=== PATIENT | female | born 1945 | race Caucasian/White ===

== ENCOUNTER → 2020-04-27 | Outpatient (CLI) | payer BC, MEDICARE ==
[~2020-04-27] MED LIST: ASPI-587 PO; ATOR20TA66 PO; CETI10CA PO; CRAN500T PO; DIPH50CA33 PO; ENAL20TA PO; EPIN5DRO3 OP; ESTR0.62 GT; FLAX100031 PO; MECL-124 PO; ONDA-42 SL; OXYC-475 PO; SALM1CAP4 PO; SCOP1PAT TD; ST.1POWD PO; TERB25PO PO; VIT1TABL58 PO; VITA-198 PO; [UNRECOGNIZED DRUG - CODE] PO
--- NOTE | 2020-04-27 11:56 | Diagnostic Imaging Report ---
INDICATION: Trauma. COMPARISON: None. FINDINGS: 3 views of the facial bones demonstrate a midline nasal septum. The orbits are symmetric. Paranasal sinuses are clear. No obvious facial fracture is identified. IMPRESSION: No facial fracture. Dictated by: Dictated on workstation # [id number]
== END ==
LOC: RAD 11:25
PROVIDERS: ATTEND Nurse Practitioner Family
DX: S01.511A Laceration without foreign body of lip, initial encounter (principal); S06.339A Contusion and laceration of cerebrum, unspecified, with loss of consciousness of unspecified duration, initial encounter; I10 Essential (primary) hypertension; M12.9 Arthropathy, unspecified; W01.10XA Fall on same level from slipping, tripping and stumbling with subsequent striking against unspecified object, initial encounter
CPT/HCPCS: 70150

== ENCOUNTER 2020-05-23 10:32 | Emergency (ER) | payer BC, MEDICARE ==
[~2020-05-23] VITALS: Ht 157 cm; Wt 81.6 kg
[2020-05-23 11:03] LABS: BASOPHILS # (AUTO) 0.1 10^3/uL (0.0-0.1); BASOPHILS % (AUTO) 1 % (0-10); EOSINOPHILS # (AUTO) 0.3 10^3/uL (0.0-0.3); EOSINOPHILS % (AUTO) 3 % (0-10); HEMATOCRIT 22 % (35-52); LYMPHOCYTES # (AUTO) 2.8 10^3/uL (1.0-4.0); LYMPHOCYTES % (AUTO) 27 % (12-44); MEAN CORPUSCULAR HEMOGLOBIN 31 pg (25-34); MEAN CORPUSCULAR HGB CONC 32 g/dL (32-36); MEAN CORPUSCULAR VOLUME 96 fL (80-99); MEAN PLATELET VOLUME 9.9 fL (9.0-12.2); MONOCYTES # (AUTO) 0.8 10^3/uL (0.0-1.0); MONOCYTES % (AUTO) 8 % (0-12); NEUTROPHILS % (AUTO) 59 % (42-75); PLATELET COUNT 443 10^3/uL (130-400); WHITE BLOOD COUNT 10.1 10^3/uL (4.3-11.0)
[2020-05-23 11:13] LABS: ALBUMIN 4.3 GM/DL (3.2-4.5); CHLORIDE 101 MMOL/L (98-107); POTASSIUM 3.9 MMOL/L (3.6-5.0); SODIUM 137 MMOL/L (135-145)
[2020-05-23 11:14] LABS: CALCIUM 8.8 MG/DL (8.5-10.1)
[2020-05-23 11:15] LABS: GLUCOSE 143 MG/DL (70-105); PROTHROMBIN TIME PATIENT 13.4 SEC (12.2-14.7); TOTAL PROTEIN 6.6 GM/DL (6.4-8.2)
[2020-05-23 11:16] LABS: CARBON DIOXIDE 23 MMOL/L (21-32)
[2020-05-23 11:17] LABS: BILIRUBIN,TOTAL 0.3 MG/DL (0.1-1.0)
[2020-05-23 11:19] LABS: ALKALINE PHOSPHATASE 68 U/L (40-136); CREATININE SERUM 0.62 MG/DL (0.60-1.30); GFR ESTIMATED > 60
[2020-05-23 11:20] LABS: BUN/CREATININE RATIO 16
[2020-05-23 11:22] LABS: ALANINE AMINOTRANSFERASE 30 U/L (0-55)
[2020-05-23 11:27] LABS: RETICULOCYTE % 8.51 % (0.50-2.40)
--- NOTE | 2020-05-23 12:29 | NUR ---
CHECKED ON PT, NOTIFIED LABS ARE STILL PENDING. PT DENIES ANY NEEDS AT THIS TIME.
[2020-05-23] MEDS ORDERED: NS IV 500 ML 500 ML ONE (13:12)
--- NOTE | 2020-05-23 13:12 | ED GI ---
General Chief Complaint: Rect Problems Stated Complaint: TRANSFUSION Nursing Triage Note: PT REPORTS TO ED BY AMBULATION. SENT BY DR. VASQUEZ'S OFFICE FOR HGB 6.7. Sepsis Screen: No Definite Risk Source of Information: Patient, Other (Office records) Exam Limitations: No Limitations History of Present Illness Date Seen by Provider: May 23, 2020 Time Seen by Provider: 10:38 Initial Comments This 74-year-old woman presents to the emergency room at the direction of her primary care provider because of a hemoglobin of 6.7. She had a large flow of bright red blood per rectum on May 18. She then presented to her primary care office on May 21. Lab was drawn at that time and it resulted to the PCP office (Dr. Vasquez) today. She has not had any major bleeding since May 19 but she has felt weak and pale. She reports a long history of having problems with anemia but she has never required transfusion. She takes aspirin but denies any anticoagulants. She has no known problem with GI bleed previously. Allergies and Home Medications Allergies Coded Allergies: No Known Drug Allergies (Unverified , 08/20/14) Home Medications Aspirin 81 Mg Tablet.dr, 81 MG PO DAILY, (Reported) Atorvastatin 20 Mg Tablet, 20 MG PO DAILY, (Reported) Cetirizine Hcl 10 Mg Capsule, 10 MG PO DAILY, (Reported) Cranberry Fruit 500 Mg Tab.chew, 500 MG PO DAILY, (Reported) Diphenhydramine Hcl 50 Mg Tablet, 50 MG PO TID, (Reported) Enalapril Maleate 20 Mg Tablet, 20 MG PO DAILY, (Reported) Epinastine Hcl 5 Ml Drops, 5 ML OP BID, (Reported) Estrogens Conjugated 0.625 Mg Tab, 0.625 MG GT DAILY, (Reported) Flaxseed Oil 1,000 Mg Capsule, 1,000 MG PO DAILY, (Reported) Oxycodone HCl/Acetaminophen 1 Each Tablet, 1-2 EACH PO Q6H Prescribed by: JOSE R PARIS on 03/14/15 1209 [place] Oil/[place]-3 Fatty Acids 1 Each Capsule, 1 EACH PO DAILY, (Reported) Siberian Ginseng 1 Gm Powder, 1 GM PO DAILY, (Reported) Serafin's Wort 1 Gm Powder, 1 GM PO DAILY, (Reported) Terbinafine Hcl 25 Gm Powder, 25 GM PO DAILY, (Reported) Vit B Cmplx No3/Fa/C/Biot/Zinc 1 Each Tablet, 1 EACH PO DAILY, (Reported) Vitamin E (Dl,Tocopheryl Acet) 1,000 Unit Capsule, 1,000 UNIT PO DAILY, (Reported) Patient Home Medication List Home Medication List Reviewed: Yes Review of Systems Review of Systems Constitutional: see HPI EENTM: No Symptoms Reported Respiratory: No Symptoms Reported Cardiovascular: No Symptoms Reported Gastrointestinal: See HPI Genitourinary: No Symptoms Reported Musculoskeletal: no symptoms reported Skin: no symptoms reported Psychiatric/Neurological: No Symptoms Reported Endocrine: No Symptoms Reported Hematologic/Lymphatic: See HPI Past Dnhjebn-Ftbtbk-Ozmawj Hx Past Med/Social Hx: Reviewed and Corrections made Patient Social History Alcohol Use: Denies Use Recreational Drug Use: No Recent Foreign Travel: No Contact w/Someone Who Travel: No Recent Infectious Disease Expo: No Immunizations Up To Date Date of Influenza Vaccine: May 09, 2014 Seasonal Allergies Seasonal Allergies: Yes Past Medical History Surgeries: Yes (BREAST BX-BENIGN, A-V FISTULA, D&C) Adenoidectomy, Appendectomy, Breast, Hysterectomy, Tonsillectomy Respiratory: No Cardiac: Yes High Cholesterol, Hypertension Neurological: No Reproductive Disorders: No Female Reproductive Disorders: Denies Sexually Transmitted Disease: No HIV/AIDS: No Genitourinary: Yes Kidney Stones Gastrointestinal: Yes (HERNIA) Gastroesophageal Reflux Musculoskeletal: Yes (WRIST, polymyalgia rheumatica) Arthritis, Fractures Endocrine: No Loss of Vision: Bilateral Cancer: No Psychosocial: Yes ([facility]-TO HELP WITH DEPRESSION) Integumentary: No Blood Disorders: Yes (anemia) Adverse Reaction/Blood Tranf: No Physical Exam Vital Signs Vital Signs - First Documented 05/23/20 11:00 Temp 37.0 Pulse 104 Resp 20 B/P (MAP) 164/78 (106) Pulse Ox 97 O2 Delivery Room Air Capillary Refill : Less Than 3 Seconds Height/Weight/BMI Height: 5'2.00" Weight: 175lbs. oz. 79.780894wa; 33.00 BMI Method:Stated General Appearance: WD/WN, no apparent distress HEENT: PERRL/EOMI, normal ENT inspection Neck: normal inspection Respiratory: lungs clear, normal breath sounds, no respiratory distress, no accessory muscle use Cardiovascular: regular rate, rhythm, no edema, no murmur Gastrointestinal: normal bowel sounds, non tender, soft Extremities: normal inspection, no pedal edema Neurologic/Psychiatric: director of aviation II-XII nml as tested, no motor/sensory deficits, alert, normal mood/affect, oriented x 3 Skin: normal color, warm/dry Progress/Results/Core Measures Results/Orders Lab Results Laboratory Tests Test 05/23/20 10:50 Range/Units White Blood Count 10.1 4.3-11.0 10^3/uL Red Blood Count 2.29 L 3.80-5.11 10^6/uL Hemoglobin 7.0 L 11.5-16.0 g/dL Hematocrit 22 L 35-52 % Mean Corpuscular Volume 96 80-99 fL Mean Corpuscular Hemoglobin 31 25-34 pg Mean Corpuscular Hemoglobin Concent 32 32-36 g/dL Red Cell Distribution Width 15.5 H 10.0-14.5 % Platelet Count 443 H 130-400 10^3/uL Mean Platelet Volume 9.9 9.0-12.2 fL Immature Granulocyte % (Auto) 1 % Neutrophils (%) (Auto) 59 42-75 % Lymphocytes (%) (Auto) 27 12-44 % Monocytes (%) (Auto) 8 0-12 % Eosinophils (%) (Auto) 3 0-10 % Basophils (%) (Auto) 1 0-10 % Neutrophils # (Auto) 6.0 1.8-7.8 10^3/uL Lymphocytes # (Auto) 2.8 1.0-4.0 10^3/uL Monocytes # (Auto) 0.8 0.0-1.0 10^3/uL Eosinophils # (Auto) 0.3 0.0-0.3 10^3/uL Basophils # (Auto) 0.1 0.0-0.1 10^3/uL Immature Granulocyte # (Auto) 0.1 0.0-0.1 10^3/uL Absolute Reticulocyte Count 194 H 24-90 10e9/uL Percent Reticulocyte Count 8.51 H 0.50-2.40 % Prothrombin Time 13.4 12.2-14.7 SEC INR Comment 1.0 0.8-1.4 Activated Partial Thromboplast Time 24 24-35 SEC Sodium Level 137 135-145 MMOL/L Potassium Level 3.9 3.6-5.0 MMOL/L Chloride Level 101 98-107 MMOL/L Carbon Dioxide Level 23 21-32 MMOL/L Anion Gap 13 5-14 MMOL/L Blood Urea Nitrogen 10 7-18 MG/DL Creatinine 0.62 0.60-1.30 MG/DL Estimat Glomerular Filtration Rate > 60 BUN/Creatinine Ratio 16 Glucose Level 143 H 70-105 MG/DL Calcium Level 8.8 8.5-10.1 MG/DL Corrected Calcium 8.6 8.5-10.1 MG/DL Total Bilirubin 0.3 0.1-1.0 MG/DL Aspartate Amino Transf (AST/SGOT) 27 5-34 U/L Alanine Aminotransferase (ALT/SGPT) 30 0-55 U/L Alkaline Phosphatase 68 40-136 U/L Total Protein 6.6 6.4-8.2 GM/DL Albumin 4.3 3.2-4.5 GM/DL My Orders Orders - ARIC MELARA MD Cbc With Automated Diff (05/23/20 10:38) Comprehensive Metabolic Panel (05/23/20 10:38) Protime With Inr (05/23/20 10:38) Partial Thromboplastin Time (05/23/20 10:38) Ed Iv/Invasive Line Start (05/23/20 10:38) Red Cells Leukocytes Reduced (05/23/20 10:38) Type And Screen (05/23/20 10:38) Iron Tibc %Sat & Ferritin (05/23/20 11:18) Reticulocyte Count (05/23/20 11:18) Ns Iv 500 Ml (Sodium Chloride 0.9%) (05/23/20 13:12) Vital Signs/I&O 05/23/20 05/23/20 05/23/20 05/23/20 11:00 13:29 13:34 13:45 Temp 37.0 36.9 37.6 36.6 Pulse 104 88 85 85 Resp 20 16 16 16 B/P (MAP) 164/78 (106) 135/68 124/54 126/57 Pulse Ox 97 98 96 98 O2 Delivery Room Air Room Air Room Air Room Air 05/23/20 14:15 Temp 36.6 Pulse 79 Resp 16 B/P (MAP) 123/65 Pulse Ox 97 O2 Delivery Room Air Blood Pressure Mean: 106 Progress Progress Note : Time: 14:18 Progress Note Patient's hemoglobin is stable at 7.0. I discussed the case with Dr. Paris who is happy to see her in the clinic tomorrow. She does not need admission since her hemoglobin is stable and she does not appear to be actively bleeding. She i s receiving one unit of blood before discharge. I offered patient a rectal exam. She declined since she will be seeing the surgeon tomorrow. Departure Impression Primary Impression: Severe anemia Additional Impression: GI bleed Qualified Codes: K62.5 - Hemorrhage of anus and rectum Disposition: HOME, SELF-CARE Condition: Improved Departure-Patient Inst. Decision time for Depature: 13:12 Referrals: JOSE R PARIS MD, RICK D MD (PCP/Family) Primary Care Physician Patient Instructions: Anemia Caused by Low Iron, Gastrointestinal Bleeding (DC) Add. Discharge Instructions: Drink plenty of clear liquids to stay well-hydrated. Stop aspirin to reduce your bleeding risk. Follow-up at Dr. PARIS's office at 11:00 tomorrow morning. See his contact information below. It might be a good idea to call ahead to make sure they have all of the information they need for your files. Eat some foods high in iron such as red meats and leafy green vegetables and continue your multivitamin containing iron. Also schedule follow-up with your primary care physician to monitor your hemoglobin levels. Gradually advance your diet with small quantities of bland food as tolerated. Continue to drink plenty of clear liquids and avoid eating large volumes of solid meals. Return to the emergency room if you have worsening symptoms. All discharge instructions reviewed with patient and/or family. Voiced unders tanding. Copy Copies To 1: JOSE R PARIS MD Copies To 2: ANGELA VASQUEZ MD, JOSHUA T MD May 23, 2020 13:12
[2020-05-23 13:29] VITALS: BP 135/68
[2020-05-23 13:34] VITALS: BP 124/54
[2020-05-23 13:45] VITALS: BP 126/57
[2020-05-23 14:15] VITALS: BP 123/65
[2020-05-23 14:36] VITALS: BP 126/59
[2020-05-23 14:44] VITALS: BP 126/59
== END 2020-05-23 14:44 | disposition home or self-care (01) ==
LOC: EDUNIT# 10:32 → ER 10:34
DX: D64.9 Anemia, unspecified (principal); K92.2 Gastrointestinal hemorrhage, unspecified; I10 Essential (primary) hypertension; E78.00 Pure hypercholesterolemia, unspecified; Z79.82 Long term (current) use of aspirin
CPT/HCPCS: 80053; 82728; 83540; 85025; 85045; 85610; 85730; 86850; 86900; 86901; 86920; 99284; P9016; 36415

== ENCOUNTER 2020-06-03 05:32 | Outpatient (RCR) | payer BC, MEDICARE ==
[~2020-06-03] VITALS: Ht 157.5 cm; Wt 77.3 kg
[~2020-06-03 05:32] MED LIST changes: +ATOR40TA70 PO; +B&C/1TAB2 PO; +CETI10TA17 PO; +DIPH50CA PO; +ENAL20TA16 PO; +EPIN5DRO10 OU; +ESTR0.62 PO; +FLAX10004 PO; +ST.300TA3 PO; +VITA100033 PO
== END 2020-06-03 09:48 | disposition home or self-care (01) ==
LOC: PREOP 05:32
PROVIDERS: ATTEND Surgery
DX: Z01.812 Encounter for preprocedural laboratory examination (principal); Z20.828 Contact with and (suspected) exposure to other viral communicable diseases
CPT/HCPCS: 87635

== ENCOUNTER 2020-06-05 12:54 | Day surgery (SDC) | payer BC, MEDICARE ==
--- NOTE | 2020-05-28 06:46 | HISTORY AND PHYSICAL ---
DATE OF SERVICE: ATTENDING PRIMARY CARE PHYSICIAN: Dr. Rufino Linder. HISTORY OF PRESENT ILLNESS: The patient is a 74-year-old female who developed a significant amount of rectal bleeding approximately 1 week ago. She states that afterwards she felt weak and saw her primary care physician 3 days later where she did not have any clinical bleeding; however, did have her lab drawn, which did show a low hemoglobin in the 6 range. She then presented to the Emergency Department for a blood transfusion where her hemoglobin was stable in the 7 range. She is doing well at this time and clinically stable and reports that she had a bowel movement yesterday, which was brown in coloration with no blood. She has not had a colonoscopy up to this point in her life. She reports that this is the first episode of having significant large volume rectal bleeding in her past. PAST MEDICAL HISTORY: Hypercholesterolemia, degenerative joint disease, hypertension, history of endometriosis. PAST SURGICAL HISTORY: Tonsillectomy, left breast biopsy, which was benign, endometrial ablation, open total hysterectomy in , bilateral cataracts, ventral abdominal incisional hernia repair 03/2015. ALLERGIES: No known drug allergies. MEDICATIONS: Amlodipine 5 mg daily, atorvastatin 40 mg daily, Premarin 0.625 mg daily, enalapril 20 mg daily, Epinastine eyedrops b.i.d., Zyrtec 10 mg daily, aspirin 81 mg daily. SOCIAL HISTORY: Previous smoke, quit 80s, 19 pack years. Negative alcohol. FAMILY HISTORY: Mother: Hypertension, diabetes, TIA in her 50s. VITAL SIGNS: Stable. Blood pressure 150/80, current weight 170.7 pounds at 5 feet 2 inches. REVIEW OF SYSTEMS: Well-nourished female, in no acute distress. She is not experiencing any shortness of breath or difficulty breathing. No chest pain, palpitations, diaphoresis. No nausea, vomiting with an episode of significant rectal bleed approximately 1 week ago, which has stopped on its own. No abdominal pain. No fever, chills, no recent inadvertent weight loss. All other review of systems negative. PHYSICAL EXAMINATION: CHEST: Clear. Good breath sounds bilaterally. HEART: Regular, no murmurs. EXTREMITIES: No lower extremity edema, negative Homans sign. HEENT: No scleral icterus. NECK: No cervical lymphadenopathy. ABDOMEN: Soft, nontender, nondistended. SKIN: Warm, dry. ASSESSMENT AND PLAN: A 74-year-old female with symptomatic rectal bleeding. She has not had a colonoscopy up to this point in her life and it was highly recommended that she proceed with one to evaluate the potential source, which may include diverticular bleeding and AV malformation versus a cancer. We will schedule her for a colonoscopy. Job ID: [id number] DocumentID: [id number] Dictated Date: 05/24/2020 12:16:21 Sales Agent [employer] Date: 05/24/2020 12:54:14 Dictated By: JOSE R KUHN MD
[2020-06-05] VITALS (8 sets, daily range): BP systolic 111–162; BP diastolic 60–80
[~2020-06-05] VITALS: Ht 157.5 cm; Wt 77.3 kg
[2020-06-05] MEDS ORDERED: NS IV 500 ML 500 ML IV PRN (12:55)
[2020-06-05] MEDS ORDERED: NS IV 500 ML 500 ML ONE (12:56)
[2020-06-05] MEDS ORDERED: fentaNYL INJECTION 100 MCG/2 ML AMP IVP ONE (13:00)
[2020-06-05] MEDS ORDERED: HURRICAINE EXT TUBE (BENZOCAINE) XX PRN (13:00)
[2020-06-05] MEDS ORDERED: LIDOCAINE JELLY 2% 6 ML SYRINGE MM PRN (13:00)
[2020-06-05] MEDS ORDERED: MIDAZOLAM 5 MG/5 ML (VERSED) VIAL IV ONE (13:00)
[2020-06-05] MEDS ORDERED: fentaNYL INJECTION 100 MCG/2 ML AMP ONE (13:51)
[2020-06-05] MEDS ORDERED: MIDAZOLAM 5 MG/5 ML (VERSED) VIAL ONE ×2 (13:51→13:52)
[2020-06-05] MEDS ORDERED: HURRICAINE EXT TUBE (BENZOCAINE) ONE (13:52)
[2020-06-05] MEDS ORDERED: LIDOCAINE JELLY 2% 6 ML SYRINGE ONE (13:52)
[2020-06-05] MEDS ORDERED: proPOfol 200 MG/20 ML (DIPRIVAN) VIAL IV ONE (14:10)
[2020-06-05] MEDS ORDERED: PROPOFOL INJECTION 50 ML IV ONE (14:10)
[2020-06-05] MEDS ORDERED: KETAMINE/NaCl 50 MG/5 ML SYRINGE (ED ONLY) ONE (14:11)
--- NOTE | 2020-06-05 15:02 | Progress Note-Pre Operative ---
Pre-Operative Progress Note H&P Reviewed The H&P was reviewed, patient examined and no changes noted. Date Seen by Provider: Jun 05, 2020 Time Seen by Provider: 13:00 Date H&P Reviewed: Jun 05, 2020 Time H&P Reviewed: 13:00 Pre-Operative Diagnosis: GERD, anemia, rectal bleed JOSE R KUHN MD Jun 05, 2020 15:02
--- NOTE | 2020-06-05 15:05 | Progress Note-Post Operative ---
Post-Operative Progess Note Surgeon (s)/Nitrating Acid Mixer (s) Surgeon JOSE R KUHN MD Nitrating Acid Mixer: none Pre-Operative Diagnosis GERD, anemia, rectal bleed Post-Operative Diagnosis reflux esophagitis(stage 2), mild distal esophageal stricture, small-moderate HH(2.5), moderate gastritis. chronic stage 3 ext stage 2 int hemorrhoids, moderate-severe sigmoid diverticulosis. Procedure & Operative Findings Date of Procedure 06/05/20 Procedure Performed/Findings EGD with bx and balloon dilatation. Colonoscopy. Anesthesia Type mac Estimated Blood Loss Estimated blood loss (mL): minimal Specimens/Packing Specimens Removed ge jxn, antrum JOSE R KUHN MD Jun 05, 2020 15:05
[2020-06-05] MEDS ORDERED: PANT40TA2 PO (15:06)
--- NOTE | 2020-06-05 15:06 | Discharge Inst-Surgical ---
D/C Lap Instructions-HATTIE New, Converted, or Re-Newed RX: RX on Chart Follow Up Activity as tolerated High Fiber Diet 25g or more per day Avoid Alcohol, Caffeine, Spicy [place] and Acid foods. Drink 64 fluid oz or more of fluids per day. Symptoms to Report: Fever over 101 degree F, Nausea/Vomiting If any problems/questions: Contact your physician or go to Emergency Room JOSE R KUHN MD Jun 05, 2020 15:06
[2020-06-05] MEDS ORDERED: morphine INJ 10 MG/ML 1ML (SYR OR VIAL) IVP PRN ×2 (15:15)
[2020-06-05] MEDS ORDERED: ACETAMINOPHEN 325 MG TABLET PO PRN (15:15)
[2020-06-05] MEDS ORDERED: ONDANSETRON 4 MG/2 ML (SDV) Z0FRAN IVP PRN (15:15)
[2020-06-05] MEDS ORDERED: HYDROcodone/APAP 5 MG/325 MG (LORTAB) TAB PO PRN (15:15)
--- NOTE | 2020-06-05 15:17 | Anesthesia-General Post-Op ---
MAC Patient Condition Mental Status/LOC: Same as Preop Cardiovascular: Satisfactory Nausea/Vomiting: Absent Respiratory: Satisfactory Pain: Controlled Complications: Absent Post Op Complications Complications None Follow Up Care/Instructions Patient Instructions None needed. Anesthesiology Discharge Order Discharge Order Patient is doing well, no complaints, stable vital signs, no apparent adverse anesthesia problems. No complications reported per nursing. MINE RAMIREZ CRNA Jun 05, 2020 15:16
--- NOTE | 2020-06-05 22:56 | OPERATIVE REPORT ---
DATE OF SERVICE: 06/05/2020 ATTENDING PRIMARY CARE PHYSICIAN: Rufino Linder MD PREOPERATIVE DIAGNOSES: Anemia, rectal bleed, gastroesophageal reflux disease. POSTOPERATIVE DIAGNOSES: Reflux esophagitis stage II, mild distal esophageal stricture, small hiatal hernia 2.5 cm in size, moderate gastritis. No distal obstructions. Moderate to severe sigmoid diverticulosis, no polyps, chronic stage III external hemorrhoids, stage II internal hemorrhoids. PROCEDURE: EGD with biopsy and balloon dilatation. Colonoscopy. SURGEON: Jose R Kuhn MD ANESTHESIA: Conscious sedation. ESTIMATED BLOOD LOSS: Minimal. FINDINGS: Same as postoperative diagnoses. DISPOSITION: The patient tolerated the procedure well. INDICATIONS: The patient is a 74-year-old female who did have significant episode of rectal bleeding. She felt weak and went to her primary care physician and was found to have a low hemoglobin in the 6 range. She then presented to the Emergency Department and had her labs were drawn, which was in the 7 range. She stated that since having the episode of significant red blood per rectum she has had brown stools. She also does report history of gastroesophageal reflux disease. She has not had a colonoscopy to this point in her life. DESCRIPTION OF PROCEDURE: The patient was brought to the endoscopy suite, laid in the left lateral decubitus position. After adequate IV pain and sedative medications and monitored anesthesia care, the mouthpiece was applied. The endoscope was placed in the mouth, visualizing the pharynx and hypopharyngeal region. Vocal cords, epiglottis and vallecula identified and appeared to be normal. The endoscope was gently intubated, esophageal opening and esophagus insufflated. The endoscope was then advanced to the first, second, third portion of the esophagus at the level of the GE junction. A reflux esophagitis stage II identified with a mild distal esophageal stricture. A biopsy was taken with forceps with visualization of good hemostasis. The endoscope was then advanced in the stomach and endoscope retroflexed, visualizing a small to moderate size hiatal hernia approximately 2.5 cm in size. There was a moderate severity gastritis. No formal ulcerations, polyps, or any neoplasms. A biopsy was taken of the antrum to rule out H. pylori with visualization of good hemostasis. The endoscope was then advanced to the pylorus and the first and second portions of the duodenum, which appeared normal with no distal obstructions. We then proceeded with balloon dilatation of the distal esophageal stricture and the balloon was placed in the stomach and pulled back to the area of stricture. We first proceeded to 2, then 4, then 6 atmospheres of pressure with moderate resistance and left this in place for approximately 60 seconds. The balloon was then desufflated and removed with visualization of good hemostasis as well as no mucosal tears. The endoscope was then slowly withdrawn while taking a second look and suctioning of residual air with no additional findings. Under the same anesthesia, we then proceeded with the colonoscopy portion of the procedure. A digital rectal examination was performed, which revealed chronic stage III external hemorrhoids as well as a stage II internal hemorrhoids. Normal sphincter tone was felt and there were no palpable masses. The endoscope was then intubated into the anus and rectum gently insufflated. The endoscope was then advanced through the valves of Marcelo of the rectum with no polyps or any neoplasms identified. Through the sigmoid, a moderate to severe sigmoid diverticulosis identified. There were no mucosal inflammatory changes to indicate any active diverticulitis as well as no active bleeding. The endoscope was then advanced to the remainder of the descending, transverse and ascending colon to the cecum. These segments were normal. There were no polyps or any neoplasms identified as well as no active bleeding sources. The endoscope was then slowly withdrawn with taking a second look and suctioning of residual air with no additional findings. The patient tolerated the procedure well. We will recommend the necessary lifestyle and diet accommodation including small and more frequent meals, avoidance of eating at night as well as head elevation while lying supine. She also needs to avoid caffeinated beverages, spicy, greasy and acidic foods. We will also start her on Protonix 40 mg daily. She also needs to incorporate a high fiber diet with at least 25 grams of fiber daily as well as significant amounts of water to promote soft stools on a daily basis and to avoid the complications associated with diverticulosis, which includes bleeding, diverticulitis as well as obstruction and perforation. If she is asymptomatic, she does not need another colonoscopy for another 10 years; however, if she does have recurrent episodes of bleeding or diverticulitis, she will need a repeat colonoscopy sooner. Job ID: [id number] DocumentID: [id number] Dictated Date: 06/05/2020 14:50:05 Marketing And Outreach Coordinator Date: 06/05/2020 22:55:46 Dictated By: JOSE R KUHN MD
== END 2020-06-05 15:50 | disposition home or self-care (01) ==
LOC: ENDO 12:54
PROVIDERS: ATTEND Surgery
DX: K22.2 Esophageal obstruction (principal); K29.50 Unspecified chronic gastritis without bleeding; K21.00 Gastro-esophageal reflux disease with esophagitis, without bleeding; K44.9 Diaphragmatic hernia without obstruction or gangrene; D64.9 Anemia, unspecified; K62.5 Hemorrhage of anus and rectum; K57.30 Diverticulosis of large intestine without perforation or abscess without bleeding; K64.2 Third degree hemorrhoids; K64.1 Second degree hemorrhoids; I10 Essential (primary) hypertension; E78.00 Pure hypercholesterolemia, unspecified; Z79.82 Long term (current) use of aspirin; Z79.899 Other long term (current) drug therapy; Z90.710 Acquired absence of both cervix and uterus; Z87.891 Personal history of nicotine dependence; Z83.3 Family history of diabetes mellitus
CPT/HCPCS: 88305

== ENCOUNTER → 2021-02-21 | Outpatient (CLI) | payer BC, MEDICARE ==
[~2021-02-21] MED LIST changes: +PANT40TA2 PO
--- NOTE | 2021-02-21 14:10 | Diagnostic Imaging Report ---
Indication: Hip pain COMPARISON: None available. TECHNIQUE: 2 radiographs of the left hip dated 02/21/2021 FINDINGS: No acute fracture or dislocation. No destructive osseous process. Minimal degenerative changes of the pubic symphysis and left hip are noted. The left femoral head maintains its normal shape and contour. The left sacroiliac joint is intact. Minimal vascular calcifications. IMPRESSION: No acute osseous abnormality with minimal degenerative changes present. Dictated by: Dictated on workstation # [id number]
--- NOTE | 2021-02-21 15:38 | Diagnostic Imaging Report ---
INDICATION: Chronic back pain. TIME OF EXAM: 12:06 PM 3 views of the lumbar spine were obtained. Curvature and alignment is normal. Vertebral body heights are well maintained. No acute compression fracture seen. There is generalized degenerative disc disease with variable disc space narrowing and marginal spurring, greatest L2-S3 level where there is complete loss of the disc space. There is moderate atherosclerotic locations in the abdominal aorta. IMPRESSION: Spondylosis. No acute bony abnormality is detected. Dictated by: Dictated on workstation # [id number]
== END ==
LOC: RAD 11:21
DX: M47.816 Spondylosis without myelopathy or radiculopathy, lumbar region (principal)
CPT/HCPCS: 72100; 73502

== ENCOUNTER → 2021-03-18 | Outpatient (CLI) | payer BC, MEDICARE ==
[~2021-03-18] MED LIST changes: +CATHETER FLUSH 10 ML SYR IV PRN; +HOLD METFORMIN - RECEIVED CONTRAST 20 ML VIAL IV SCH; +IOHEXOL 350 MG/ML 100 ML (OMNIPAQUE 350) VIAL IV ONE; +NS 100 ML (IVPB) BAG IV ONE
[2021-03-18 13:37] LABS: CREATININE SERUM 0.64 MG/DL (0.60-1.30)
--- NOTE | 2021-03-18 16:06 | Diagnostic Imaging Report ---
PROCEDURE: CT abdomen and pelvis with and without contrast. TECHNIQUE: Precontrast acquisitions were acquired through the abdomen and pelvis. Multiple contiguous axial images were obtained through the abdomen and pelvis after the administration of intravenous contrast. Auto Exposure Controls were utilized during the CT exam to meet ALARA standards for radiation dose reduction. INDICATION: Left lower quadrant abdominal pain COMPARISON: None. FINDINGS: The lung bases are clear. There is a small hiatal hernia. The gallbladder, solid organs, vascular structures and small bowel normal. There is moderate diverticulosis of the transverse, descending and sigmoid colon without acute diverticulitis. There is no free air, free fluid or inflammatory process. There is mild constipation of the distal colon. The appendix is non-visualized and may be surgically absent. The uterus is surgically absent. The urinary bladder is normal. There is no hernia. Osseous structures are age-appropriate IMPRESSION: 1. Small hiatal hernia. 2. Extensive diverticulosis without CT evidence for acute diverticulitis. 3. Distal colonic constipation. 4. Surgically absent uterus. Dictated by: Dictated on workstation # [id number]
== END ==
LOC: RAD 14:15
PROVIDERS: ATTEND Surgery
DX: K44.9 Diaphragmatic hernia without obstruction or gangrene (principal); K57.30 Diverticulosis of large intestine without perforation or abscess without bleeding; K59.00 Constipation, unspecified; Z90.710 Acquired absence of both cervix and uterus
CPT/HCPCS: 36415; 74178; 82565; 84520

== ENCOUNTER → 2021-09-05 | Outpatient (CLI) | payer BC, MEDICARE ==
[~2021-09-05] MED LIST changes: -CATHETER FLUSH 10 ML SYR IV PRN; -DIPH50CA PO; -HOLD METFORMIN - RECEIVED CONTRAST 20 ML VIAL IV SCH; -IOHEXOL 350 MG/ML 100 ML (OMNIPAQUE 350) VIAL IV ONE; -NS 100 ML (IVPB) BAG IV ONE
--- NOTE | 2021-09-05 14:11 | Diagnostic Imaging Report ---
INDICATION: Routine screening Comparison is made with prior mammogram from 03/03/2012. 2-D and 3-D screening mammography was performed with CAD. Both breasts are heterogeneously dense, limiting sensitivity of mammography. The parenchymal pattern is stable. No mass or malignant-appearing microcalcifications are seen. Axillae are unremarkable. IMPRESSION: No mammographic features suspicious for malignancy are identified. BI-RADS Category 1 ACR BI-RADS Category 1: Negative. Result letter will be mailed to the patient. Note: At least 10% of breast cancer is not imaged by mammography. Dictated by: Dictated on workstation # [id number]
== END ==
LOC: RAD 11:15
DX: Z12.31 Encounter for screening mammogram for malignant neoplasm of breast (principal)
CPT/HCPCS: 77063; 77067

== ENCOUNTER → 2023-03-26 | Outpatient (CLI) | payer BC, MEDICARE ==
[~2023-03-26] MED LIST changes: +ENAL-70 PO; -ENAL20TA16 PO; -ST.300TA3 PO; +ST.300TA4 PO
--- NOTE | 2023-03-26 11:37 | Diagnostic Imaging Report ---
Indication: Routine screening. Comparison is made with prior mammogram 09/05/2021. 2-D and 3-D bilateral screening mammography was performed with CAD. Both breasts are heterogeneously dense, limiting the sensitivity of mammography. No spiculated mass or malignant-appearing microcalcifications are seen. There is an intervertebral lymph node in the upper outer right breast posterior depth. Axillae are unremarkable. IMPRESSION: BI-RADS Category 2 No mammographic features suspicious for malignancy are identified. ACR BI-RADS Category 2: Benign findings. Result letter will be mailed to the patient. Note: At least 10% of breast cancer is not imaged by mammography. Dictated by: Dictated on workstation # [id number]
== END ==
LOC: RAD 08:35
PROVIDERS: ATTEND Internal Medicine
DX: Z12.31 Encounter for screening mammogram for malignant neoplasm of breast (principal)
CPT/HCPCS: 77063; 77067

== ENCOUNTER 2023-06-01 08:22 | Outpatient (CLI) | payer BC, MEDICARE ==
[~2023-06-01] VITALS: Ht 154.9 cm; Wt 76.4 kg
--- NOTE | 2023-06-01 09:30 | Physical Therapy Pre-Op Eval ---
PT Pre-Surgical Assessment Type of Surgery Type of Surgery: right OA/elective right TKR 06/16/23 Prior Level of Function Current Living Status: Alone Locomotion (Upon Admit): Straight Cane PLOF DME: Front Wheeled Walker Subjective Home: Single Level Current Living Status: Alone Entry Into Home: Stairs With Railing Steps Into Home: 5 Steps Accessories: Railing Present Motor Control Motor Control: Motor Control WNL ROM ROM: WFL, except focal deficit Strength Strength: WFL Transfers Transfers (B, C, W/C) (FIM): 6 Gait Gait (FIM): 6 Gait Distance (FIM): 6 Distance: 200' x 2 Gait Assistive Device: FWW Right Lower Extremity: Right Weight Bearing/Tolerated Left Lower Extremity: Left Full Weight Bearing Treatment Rendered Treatment: Patient instructed in assistive device, supported ambulation. Patient instructed in and given written program of ROM and strengthening exercises to be preformed post-op. Patient instructed in movement precautions where applicable. Patient demonstrates understandings of post-operative therapy protocol including gait pattern and exercise program. Pre-operative instruction completed; await physical therapy orders after surgery. Patient issued written HEP with demonstration and review, gait training with FWW and stair training with rail and FWW. Treatment Goal Met: Yes Assessment Goals Acheived: I Ambulation w/ FWW, Understands P-op Precaut, I Post-op Exercises Charges/GCodes Time In: 901 Time Out: 919 Total Billed Treatment Time: 18 Total Billed Treatment 1 visit EVModC 18 min KATELYN SOLER PT Jun 01, 2023 09:30
[2023-06-01] MEDS ORDERED: TRAM50TA3 PO (09:57)
[2023-06-01] MEDS ORDERED: CELE200C PO (09:57)
[2023-06-01] MEDS ORDERED: DOXY100T2 PO (09:57)
[2023-06-01] MEDS ORDERED: ASPI-999 PO (09:57)
[2023-06-01] MEDS ORDERED: AMLO-250 PO (09:57)
[2023-06-01] MEDS ORDERED: KRIL1CAP4 PO (09:57)
[2023-06-01] MEDS ORDERED: ACET325T38 PO (09:57)
[2023-06-01] MEDS ORDERED: ACYC200O10 PO (09:57)
[2023-06-01 10:00] VITALS: BP 148/86
[2023-06-01 10:29] LABS: BACTERIA,URINE NEGATIVE /HPF; BILIRUBIN,URINE NEGATIVE (NEGATIVE); CLARITY,URINE CLEAR; COLOR,URINE YELLOW; GLUCOSE, URINE (UA) NEGATIVE (NEGATIVE); KETONES,URINE NEGATIVE (NEGATIVE); LEUKOCYTE ESTERASE ,URINE NEGATIVE (NEGATIVE); NITRITE,URINE NEGATIVE (NEGATIVE); PROTEIN,URINE NEGATIVE (NEGATIVE); WBC,URINE RARE /HPF
[2023-06-01 12:00] LABS: BASOPHILS # (AUTO) 0.1 10^3/uL (0.0-0.1); BASOPHILS % (AUTO) 1 % (0-10); EOSINOPHILS # (AUTO) 0.1 10^3/uL (0.0-0.3); EOSINOPHILS % (AUTO) 1 % (0-10); HEMATOCRIT 44 % (35-52); HEMOGLOBIN 14.6 g/dL (11.5-16.0); LYMPHOCYTES # (AUTO) 1.7 10^3/uL (1.0-4.0); LYMPHOCYTES % (AUTO) 15 % (12-44); MEAN CORPUSCULAR HEMOGLOBIN 30 pg (25-34); MEAN CORPUSCULAR HGB CONC 33 g/dL (32-36); MEAN CORPUSCULAR VOLUME 91 fL (80-99); MEAN PLATELET VOLUME 10.5 fL (9.0-12.2); MONOCYTES # (AUTO) 0.6 10^3/uL (0.0-1.0); MONOCYTES % (AUTO) 5 % (0-12); NEUTROPHILS # (AUTO) 9.2 10^3/uL (1.8-7.8); NEUTROPHILS % (AUTO) 78 % (42-75); PLATELET COUNT 305 10^3/uL (130-400); WHITE BLOOD COUNT 11.8 10^3/uL (4.3-11.0)
[2023-06-01 12:07] LABS: ALBUMIN 4.6 GM/DL (3.2-4.5); CHLORIDE 103 MMOL/L (98-107); POTASSIUM 3.6 MMOL/L (3.6-5.0); SODIUM 140 MMOL/L (135-145)
[2023-06-01 12:08] LABS: CALCIUM 9.7 MG/DL (8.5-10.1)
[2023-06-01 12:09] LABS: GLUCOSE 119 MG/DL (70-105); TOTAL PROTEIN 7.5 GM/DL (6.4-8.2)
[2023-06-01 12:10] LABS: CARBON DIOXIDE 23 MMOL/L (21-32)
[2023-06-01 12:11] LABS: BILIRUBIN,TOTAL 0.5 MG/DL (0.1-1.0); INR 0.9 (0.8-1.4); PROTHROMBIN TIME PATIENT 12.5 SEC (12.2-14.7)
[2023-06-01 12:13] LABS: ALKALINE PHOSPHATASE 112 U/L (40-136); CREATININE SERUM 0.61 MG/DL (0.60-1.30); GFR ESTIMATED 93
[2023-06-01 12:14] LABS: BUN/CREATININE RATIO 26
[2023-06-01 12:16] LABS: ALANINE AMINOTRANSFERASE 18 U/L (0-55)
--- NOTE | 2023-06-01 16:06 | Diagnostic Imaging Report ---
INDICATION: Preoperative evaluation prior to total right knee replacement. COMPARISON: None FINDINGS: Frontal and lateral views of the chest demonstrate normal heart size and pulmonary vascularity. The lungs are clear. There are no signs of infiltrate, pleural effusions or pneumothoraces. The visualized osseous structures show no acute abnormalities. IMPRESSION: 1. No acute process. No signs of infiltrates, effusions or pneumothoraces. Dictated by: Dictated on workstation # [id number]
== END 2023-06-03 13:04 ==
LOC: PREOP 08:22
PROVIDERS: ATTEND Orthopaedic Surgery
DX: Z01.818 Encounter for other preprocedural examination (principal); M17.11 Unilateral primary osteoarthritis, right knee
CPT/HCPCS: 36415; 71046; 80053; 81000; 85025; 85610; 86850; 86900; 86901; 87081; 93005

== ENCOUNTER 2023-06-16 05:52 | Inpatient (IN) | payer BC, MEDICARE ==
--- NOTE | 2023-05-31 16:06 | HISTORY AND PHYSICAL ---
This will be for inpatient admission on 06/16/2023 for right total knee arthroplasty. HISTORY: The patient is a 77-year-old female with longstanding progressive right knee pain. Radiographs reveal severe medial and patellofemoral arthrosis. She has undergone treatment with injections, anti-inflammatories and rest without relief. Due to functional impairment and failure to improve with conservative measures, the patient elected to proceed with surgical intervention. REVIEW OF SYSTEMS: No chest pain, no shortness of breath, no dysuria. PAST MEDICAL HISTORY: None. PAST SURGICAL HISTORY: Herniorrhaphy, mandible, bilateral cataracts, breast biopsy, hysterectomy, tonsillectomy. FAMILY HISTORY: Emphysema, stroke, skin cancer. PRIMARY CARE PROVIDER: Dr. Quinteros. MEDICATIONS: Pantoprazole, doxycycline, Aleve, Benadryl, Zyrtec, clobetasol ointment, estradiol, amlodipine, enalapril, tramadol, ALLERGIES: No known drug allergies. SOCIAL HISTORY: The patient is a former smoker. She denies alcohol use. PHYSICAL EXAMINATION: GENERAL: The patient is well developed, well nourished, in no acute distress. HEENT: Normocephalic, atraumatic. Pupils equal, round, react to light. Oropharynx is clear. LUNGS: Clear to auscultation bilaterally. HEART: Regular rate and rhythm. ABDOMEN: Soft, nontender, nondistended. EXTREMITIES: The right lower extremity demonstrates varus alignment. She is tender along her medial femoral epicondyle. She has pain medially with Luna's. She has a slight effusion. There is no erythema or warmth. Range of motion is 0/3/120. There is no varus or valgus laxity. Negative anterior and posterior drawer. The patient ambulates with an antalgic gait. IMPRESSION: Severe right knee osteoarthritis. PLAN: Right total knee arthroplasty. The risks, benefits, options, ramifications, and recovery were discussed at length with the patient. She understands and wishes to proceed. Job ID: [id number] DocumentID: [id number] Dictated Date: 05/31/2023 12:29:28 Religious Education Coordinator Date: 05/31/2023 16:04:00 Dictated By: LEIDA GOMEZ MD
[2023-06-16] VITALS (11 sets, daily range): BP systolic 143–177; BP diastolic 43–117
[~2023-06-16] VITALS: Ht 154 cm; Wt 76.4 kg
[~2023-06-16 05:52] MED LIST changes: +ACET325T38 PO; +ACYC200O10 PO; +AMLO-250 PO; +ASPI-999 PO; +CELE200C PO; +DOXY100T2 PO; +KRIL1CAP4 PO; +TRAM50TA3 PO
[2023-06-16] MEDS ORDERED: CEFUROXIME 1.5 GM VIAL ONE (06:51)
[2023-06-16] MEDS ORDERED: NS (IVPB) 100 ML 100 ML ONE (06:51)
[2023-06-16] MEDS: LACTATED RINGERS 1,000 ML 1,000 ML IV PRN ×2 (06:55→07:35)
[2023-06-16] MEDS ORDERED: CEFUROXIME INJECTION 1,500 MG in NS (IVPB) 50 ML 50 ML IV ONE (07:00)
[2023-06-16] MEDS ORDERED: ONDANSETRON INJECTION 4 MG/2 ML (SDV) IV PRN (07:15)
[2023-06-16] MEDS ORDERED: TEMAZEPAM 15 MG (RESTORIL) CAP PO PRN (07:15)
[2023-06-16] MEDS ORDERED: diphenhydrAMINE INJ 50 MG/ML VIAL IVP PRN (07:15)
[2023-06-16] MEDS ORDERED: MIDAZOLAM INJ 2 MG/2 ML VIAL ONE (07:18)
[2023-06-16] MEDS ORDERED: INTRA-ARTICULAR IU ONE ×5 (07:30)
--- NOTE | 2023-06-16 07:30 | Progress Note-Pre Operative ---
Pre-Operative Progress Note Date of Available H&P: May 31, 2023 Date H&P Reviewed: Jun 16, 2023 Time H&P Reviewed: 07:11 Changes from last HP none Pre-Operative Diagnosis: right knee primary osteoarthritis LEIDA GOMEZ MD Jun 16, 2023 07:30
--- NOTE | 2023-06-16 07:32 | Progress Note-Post Operative ---
Post-Operative Progess Note Surgeon (s)/Surgery Aide (s) Surgeon LEIDA GOMEZ MD Surgery Aide: Ned Maldonado Pre-Operative Diagnosis right knee primary osteoarthritis Post-Operative Diagnosis right knee primary osteoarthritis Procedure & Operative Findings Date of Procedure 06/16/23 Procedure Performed/Findings right total knee arthroplasty Anesthesia Type spinal Estimated Blood Loss Estimated blood loss (mL): minimal Specimens/Packing Specimens Removed none Packing: none LEIDA GOMEZ MD Jun 16, 2023 07:31
--- NOTE | 2023-06-16 07:34 | D/C HH Face to Face Order ---
D/C Face to Face Orders Reconcile Patient Problems Problems Reviewed?: Yes Instructions for Patient Via [facility] Motorpaneer, Patient Instructions/FollowUp: three weeks Physician to follow Patient: three weeks Discharge Diet for Home: Regular Diet Patient Data-Allergies,Ht & Wt Patient Allergies: Coded Allergies: No Known Drug Allergies (Unverified , 08/20/14) Height (Feet): 5 Height (Inches): 2.00 Weight (Pounds): 175 Home Health Need/Face to Face Date of Face to Face: Jun 16, 2023 Clinical Findings: Muscle weakness, Pain with ambulation, Unsteady gait I have seen Pt [id number]: Yes Discharged To: Home Diagnosis/Conditions: right total knee arthroplasty Patient is Homebound due to: Muscle weakness, Pain w/ambulation Homebound Status Due to the above stated illness, injury or surgical procedure (medical condition or diagnosis) and associated clinical findings, the patient is homebound because of his/her inability to leave home except with aid of a supportive device and/or person AND leaving the home requires a considerable and taxing effort or is medically contraindicated. Pt req the following assistanc: Walker Home Health Nursing Orders Home Health Services Order: Physical Therapy-Evaluate & Treat DC right knee lor and apply steri strips 06/30/23 Home Health Infusion Therapy Line Start Date: Jun 16, 2023 Therapy Orders Therapy Orders: Physical Therapy, PT to assess for OT Therapy Specific Orders: Eval assistive deivces, Teach enviro modifications/safety, Gait training, Increase strength/endurance, Provider maintenance therapy, Restore ROM Certify Stmt I certify that this patient is under my care and that I, a nurse practitioner or a physician; a ict sales assistant working with me, had a face to face encounter that - meets the physician face to face encounter requirements with this patient as dated. LEIDA GOMEZ MD Jun 16, 2023 07:34
[2023-06-16] MEDS ORDERED: fentaNYL INJECTION 100 MCG/2 ML VIAL ONE (08:14)
[2023-06-16] MEDS ORDERED: ONDANSETRON INJECTION 4 MG/2 ML (SDV) ONE ×2 (08:57→09:43)
[2023-06-16] MEDS ORDERED: TRANEXAMIC ACID 100 MG/ML 10 ML INJECTION ONE (08:57)
[2023-06-16] MEDS ORDERED: KETOROLAC INJ 30 MG/ML VIAL ONE (09:20)
[2023-06-16] MEDS ORDERED: BUPIVACAINE 0.5% 30 ML VIAL ONE ×2 (09:20→10:06)
[2023-06-16] MEDS ORDERED: morphine INJ 10 MG/ML 1ML (SYR OR VIAL) ONE (09:43)
[2023-06-16] MEDS ORDERED: HYDROmorphone INJECTION 2 MG/ML VIAL IV ONE (09:45)
[2023-06-16] MEDS ORDERED: morphine INJ 10 MG/ML 1ML (SYR OR VIAL) IVP ONE (09:45)
[2023-06-16] MEDS ORDERED: ONDANSETRON INJECTION 4 MG/2 ML (SDV) IVP PRN (09:45)
--- NOTE | 2023-06-16 10:55 | Progress Note ---
Standard Progress Note Progress Notes/Assess & Plan Date Seen by a Provider: Jun 16, 2023 Time Seen by a Provider: 10:54 Progress/Assessment & Plan no complaints radiographs--HW well positioned without fracture RLE--2 plus DP pulse with brisk cap refill intact DF and PF of toes and ankle able to perform SLR s/p RTKA mobilize as able LEIDA GOMEZ MD Jun 16, 2023 10:55
[2023-06-16] MEDS: NS IV 1000 ML 1,000 ML IV SCH ×2 (11:00→23:09)
[2023-06-16] MEDS: CELECOXIB 400 MG CAPSULE PO SCH (11:01)
[2023-06-16] MEDS ORDERED: PHENYLEPHRINE PR PRN (13:30)
[2023-06-16] MEDS ORDERED: [UNRECOGNIZED DRUG - OTHER] PR PRN (13:30)
--- NOTE | 2023-06-16 13:59 | Physical Therapy Evaluation ---
PT Evaluation-General Medical Diagnosis Admission Date Jun 16, 2023 at 05:52 Medical Diagnosis: RTKA Onset Date: Jun 16, 2023 Therapy Diagnosis Therapy Diagnosis: Gait deficit, strength deficit Height/Weight Height (Feet): 5 Height (Inches): 2.00 Weight (Pounds): 175 Precautions Precautions/Isolations: Fall Prevention, Standard Precautions Weight Bear Status Right Lower Extremity: Right Weight Bearing/Tolerated Left Lower Extremity: Left Full Weight Bearing Referral Physician: Dr. Quarles Reason for Referral: Evaluation/Treatment Medical History Reviewed History: Yes Social History Home: Single Level Current Living Status: Alone Entry Into Home: Stairs With Railing PT Steps Into Home: 6 Prior Prior Level of Function SCALE: Activities may be completed with or without assistive devices. 1-Vzjimrtvcx-fijfgbl completes the activity by him/herself with no assistance from a helper. 5-Set-up or Clean-up Assistance-helper sets up or cleans up; patient completes activity. [place]don assists only prior to or following the activity. 4-Supervision or Touching Assistance-helper provides verbal cues and/or touching/steadying and/or contact guard assistance as patient completes activity. Assistance may be provided throughout the activity or intermittently. 3-Partial/Moderate Assistance-helper does LESS THAN HALF the effort. Herndon lifts, holds or supports trunk or limbs, but provides less than half the effort. 2-Substantial/Maximal Assistance-helper does MORE THAN HALF the effort. Herndon lifts or holds trunk or limbs and provides more than half the effort. 1-Dqwkpkium-sgktst does ALL the effort. Patient does none of the effort to c omplete the activity. Or, the assistance of 2 or more helpers is required for the patient to complete the activity. If activity was not attempted, code reason: 7-Patient Refused. 9-Not Applicable-not attempted and the patient did not perform the activity before the current illness, exacerbation or injury. 10-Not Attempted due to Environmental Limitations-(lack of equipment, weather restraints, etc.). 88-Not Attempted due to Medical Conditions or Safety Concerns. Bed Mobility: 6 Transfers (B,C,W/C): 6 Gait: 6 Stairs: 6 Indoor Mobility (Ambulation): Independent Stairs: Independent Prior Devices Use: None Prior Device Use: Has FWW PT Evaluation-Current Subjective Patient sitting in chair upon PT arrival, agreeable to treatment. Patient rates pain at 3/10 currently in right knee. Objective Patient Orientation: Person, Place, Time, Situation Attachments: Polar Pack ROM/Strength ROM Lower Extremities Left LE WFLs all planes. Right Knee flexion 85 degrees, extension lacks 15 degrees Strength Lower Extremities Left LE 5/5 all planes. Right knee flexion 3/5, extension 3/5 Sensory Vision: Functional Hearing: Functional Sensation Right Lower Extremit: Intact Sensation Left Lower Extremity: Intact Transfers Sit to Stand (QC): 4 Chair/Bup-ei-Qzlrq Xfer(QC): 4 Gait Does the Patient Walk?: Yes Mode of Locomotion: Walk Anticipated Mode of Locomotion: Walk Walk 10 feet (QC): 4 Walk 50 ft with 2 Turns(QC): 4 Distance: 100' Gait Assistive Device: FWW Balance Sitting Static: Normal Sitting Dynamic: Normal Standing Static: Fair Standing Dynamic: Fair Assessment/Needs Patient performed all observed transfers with SBA. Patient ambulates 100 feet with FWW, with SBA and verbal cues for safety, progression, use of FWW. Patient in chair post treatment with all needs met, nursing notified, call light in hand. Rehab Potential: Good PT 2 Year Olds Preschool Teacher Goals 2 Year Olds Preschool Teacher Goals PT 2 Year Olds Preschool Teacher Goals Time Frame: Jul 08, 2023 Roll Left & Right (QC): 6 Sit to Lying (QC): 6 Lying-Sitting on Side/Bed(QC): 6 Sit to Stand (QC): 6 Chair/Ocq-tj-Ehtxa Xfer(QC): 6 Toilet Transfer (QC): 6 Car Transfer (QC): 6 Does the Patient Walk: Yes Walk 10 feet (QC): 6 Walk 50ft with 2 Turns (QC): 6 Walk 150 ft (QC): 6 1 Step (curb) (QC): 4 4 Steps (QC): 4 12 Steps (QC): 4 PT Plan Problem List Problem List: Activity Tolerance, Functional Strength, Safety, Balance, Gait, Transfer, Bed Mobility, ROM Treatment/Plan Treatment Plan: Continue Plan of Care Treatment Plan: Bed Mobility, Education, Functional Activity Tomasa, Functional Strength, Group Therapy, Gait, Safety, Therapeutic Exercise, Transfers Treatment Duration: Jul 08, 2023 Frequency: 11 times per week Estimated Hrs Per Day: .25 hour per day Patient and/or Family Agrees t: Yes Safety Risks/Education Patient Education: Gait Training, Transfer Techniques Teaching Recipient: Patient Teaching Methods: Demonstration, Discussion Response to Teaching: Verbalize Understanding, Return Demonstration Time Time In: 1334 Time Out: 1354 DATE: Jun 16, 2023 Total Billed Treatment Time: 20 Total Billed Treatment Visit, TAYLOR IRIZARRY PT Jun 16, 2023 13:59
--- NOTE | 2023-06-16 14:34 | Diagnostic Imaging Report ---
INDICATION: Postop right knee arthroplasty. TECHNIQUE: AP and lateral views of the right knee were obtained. FINDINGS: No fracture or acute bony abnormality is seen. There is a new right knee prosthesis in anatomic alignment. Soft tissue gas is present, compatible with recent surgery. There are surgical lor but no unexpected radiopaque foreign body. IMPRESSION: Postop images demonstrate a well aligned right knee prosthesis with no acute abnormality or unexpected radiopaque foreign body. Dictated by: Dictated on workstation # [id number]
[2023-06-16] MEDS: CEFUROXIME INJECTION 750 MG in NS (IVPB) 50 ML 50 ML IV SCH ×2 (14:51→19:51)
[2023-06-16] MEDS: oxyCODONE/ACETAMINOPHEN 5/325MG TABLET PO PRN ×2 (14:57→23:24)
[2023-06-16] MEDS ORDERED: hydrALAZINE INJECTION 20 MG/ML VIAL IV PRN (17:45)
--- NOTE | 2023-06-16 17:46 | Consultation - Hospitalist ---
HPI History of Present Illness: HPI/Chief Complaint Ade Rutherford is a 77 year old female with PMH HTN, GERD, HLD, obesity, OA, who was admitted for a scheduled total knee arthroplasty. She underwent the procedure this morning with Dr. Quarles. The hospitalist service was consulted to assist with her care. She is doing well post-operatively. She is sitting in her chair. She has already been up and walked a bit in her room. She denies pain at this time. She has no other complaints. Source: patient Exam Limitations: no limitations Date Seen 06/16/23 Attending Physician Brandyn Quinteros MD PCP Admitting Physician: Peng Quarles MD Attending Physician: Peng Quarles MD Referring Physician Date of Admission Jun 16, 2023 at 05:52 Home Medications & Allergies Home Medications Reviewed patient Home Medication Reconciliation performed by pharmacy medication reconciliations cryptologic technician and/or nursing. Patients Allergies have been reviewed. Allergies Allergies Coded Allergies No Known Drug Allergies (Unverified08/20/14) Past Cebhhzw-Hfmzps-Cfjamh Hx Patient Social History Tobacco Use?: No Substance use?: No Alcohol Use?: No Pt feels they are or have been: No Immunizations Up To Date Date of Influenza Vaccine: May 09, 2020 Seasonal Allergies Seasonal Allergies: Yes Current Status status: No status: No Advance Directives: No Communicates: Verbally Primary Language: Kyrgyz Is interpretation needed?: No Sensory deficits: Vision impairment Past Medical History Surgeries: Adenoidectomy, Appendectomy, Breast, Hysterectomy, Tonsillectomy High Cholesterol, Hypertension Sexually Transmitted Disease: No HIV/AIDS: No Kidney Stones Gastroesophageal Reflux, Hiatal Hernia Arthritis, Fractures Loss of Vision: Bilateral Eczema, Herpes Blood Disorders: Yes (anemia) Adverse Reaction/Blood Tranf: No Family Medical History No Pertinent Family Hx Review of Systems Constitutional: no symptoms reported Respiratory: no symptoms reported Cardiovascular: no symptoms reported Gastrointestinal: no symptoms reported Physical Exam Physical Exam Vital Signs Vital Signs - First Documented 06/16/23 06:30 Temp 36.6 Pulse 67 Resp 18 B/P (MAP) 160/68 (98) Pulse Ox 100 O2 Delivery Room Air Capillary Refill : Less Than 3 Seconds Height, Weight, BMI Height: 5'2.00" Weight: 175lbs. oz. [id number]; 32.21 BMI Method:Stated General Appearance: No Apparent Distress, Obese HEENT: PERRL/EOMI, Pharynx Normal Neck: Normal Inspection, Supple Respiratory: Lungs Clear, No Respiratory Distress Cardiovascular: Regular Rate, Rhythm, No Murmur Gastrointestinal: Normal Bowel Sounds, Soft Extremity: Normal Inspection, No Pedal Edema Neurologic/Psychiatric: Alert, Normal Mood/Affect Skin: Normal Color, Warm/Dry Results Results/Procedures Labs Patient resulted labs reviewed. Imaging: Reviewed Imaging Report Assessment/Plan Assessment and Plan Assess & Plan/Chief Complaint Osteoarthritis s/p TKA Ortho primary s/p TKA 06/16 Pain regimen Bowel regimen Incentive spirometry PT/OT HTN GERD HLD Obesity Continue home meds as able DVT prophylaxis: Lovenox Diagnosis/Problems Diagnosis/Problems (1) S/P total knee arthroplasty Status: Acute (2) Osteoarthritis of right knee Status: Acute (3) HTN (hypertension) Status: Chronic (4) GERD (gastroesophageal reflux disease) Status: Chronic (5) HLD (hyperlipidemia) Status: Chronic (6) Obesity Status: Chronic YOUSIF LEDEZMA MD Jun 16, 2023 17:46
--- NOTE | 2023-06-16 18:34 | OPERATIVE REPORT ---
DATE OF SERVICE: 06/16/2023 PREOPERATIVE DIAGNOSIS: Right knee primary osteoarthritis. POSTOPERATIVE DIAGNOSIS: Right knee primary osteoarthritis. PROCEDURE: Right total knee arthroplasty. SURGEON: Peng Gomez MD BOATBUILDER WOOD: Ned Maldonado, who assisted throughout the procedure and closed the incision. ANESTHESIA: Spinal by Summer Corcoran CRNA. TOURNIQUET TIME: Approximately 55 minutes at 300 mmHg. ESTIMATED BLOOD LOSS: Minimal. DRAINS: None. COMPLICATIONS: None. POSTOPERATIVE PLAN: Routine total knee arthroplasty protocol. MATERIALS: MicroPort cemented size 3 femur, cemented size 3 tibia with 10 mm insert and cemented size 29 patellar button. STATEMENT OF MEDICAL NECESSITY: The patient is a 77-year-old female with complaints of right knee pain, which has been progressive in nature. She has undergone treatment with injections, anti-inflammatories and rest without relief. Radiographs revealed severe medial and patellofemoral arthrosis. Due to functional impairment and failure to improve with conservative measures, the patient elected to proceed with surgical intervention. DESCRIPTION OF PROCEDURE: After risks and benefits of procedure were discussed and questions were answered and informed consent was signed and placed on the chart, the operative site was confirmed in the preoperative holding area initialed by surgeon. The patient was then transferred to the operating room and after adequate levels of general endotracheal anesthetic were obtained, a timeout was called, confirming the operative site. The right lower extremity was prepped and draped in the usual sterile fashion. With the leg elevated and the knee flexed, tourniquet inflated to 300 mmHg. A standard anterior approach was utilized. Hemostasis was obtained with cautery. A medial parapatellar arthrotomy was performed, leaving 1 cm cuff on the patella for later reattachment. Portion of fat pad was resected. A subperiosteal release was performed on the proximal medial tibia, being careful to stay on the bony surface. The ACL was resected. Intramedullary guide was passed into the femoral canal. Distal cutting block was placed. Distal cut was made and the femur was sized to a size 3. The 3 cutting block was placed parallel to the epicondylar axis and cuts were made from posterior to anterior. A subperiosteal release was then carefully performed on the posterior distal femur, being careful to stay on the bony surface. Intramedullary guide was then passed into the tibial canal. The cutting block was placed. Drop iram transected the intermalleolar axis and the cut was made. The 3 baseplate provided excellent coverage. This was pinned into position. The drop iram transected the intermalleolar axis and this was prepared with the drill and keel punch. The femoral trial was placed and trochlear cut was made and the femoral trial was placed. A 10 mm insert was placed. The undersurface of the patella was then prepared by resecting 10 mm off the undersurface. The peg guide was placed and peg holes were drilled. A 29 trial was placed and knee was taken through range of motion. Full extension was easily obtained. A 120 degrees of flexion with gravity was easily obtained. There was no anterior/posterior or medial/lateral laxity in flexion or extension. The trials were removed. The joint was irrigated with pulse lavage. Periarticular block was placed in the posterior capsule, medial and lateral retinaculum extensor mechanism and subcutaneous tissues. The bone ends were irrigated and dried. Tibial baseplate was cemented into position. Excessive cement was removed. The superior surface was irrigated and dried and the polyethylene insert was placed. Distal femur was irrigated and dried and the femoral prosthesis was cemented in position. Excessive cement was removed. The knee was brought out into full extension until cement had cured. The undersurface of the patella was irrigated and dried. The patellar button was cemented into position and held until the cement had cured. Excessive cement was removed. Once the cement had cured, knee was taken through range of motion. Full extension was easily obtained, 120 degrees of flexion with gravity was easily obtained. There was no anterior/posterior or medial/lateral laxity in flexion or extension and the patella tracked well. The joint was further irrigated with pulse lavage. In addition, 450 mL of [ ] was used throughout the procedure. Once the joint had been copiously irrigated, the arthrotomy was closed with #2 Tevdek in figure-of-8 interrupted fashion. Knee was flexed. Repair was stable and the patella tracked well. Subcutaneous tissues were then irrigated with Aricept and pulse lavage using a total of [ ] liters of pulse lavage throughout the procedure. A 0 Vicryl was used to reapproximate subcutaneous tissue, 3-0 Vicryl for the subcutaneous tissue and skin was closed with lor. A soft dressing was applied. The tourniquet was deflated and the patient was transferred to the recovery room awake and stable condition. Job ID: [id number] DocumentID: [id number] Dictated Date: 06/16/2023 09:17:12 Personnel Associate Date: 06/16/2023 18:32:00 Dictated By: PENG GOMEZ MD
[2023-06-16] MEDS: SENNA W/DOCUSATE TABLET PO SCH (19:51)
[2023-06-17 03:09] VITALS: BP 160/77
[2023-06-17] MEDS: oxyCODONE/ACETAMINOPHEN 5/325MG TABLET PO PRN ×4 (04:14→19:39)
[2023-06-17 05:51] LABS: HEMOGLOBIN 10.6 g/dL (11.5-16.0)
[2023-06-17 07:24] VITALS: BP 179/77
--- NOTE | 2023-06-17 07:44 | Progress Note ---
Standard Progress Note Progress Notes/Assess & Plan Date Seen by a Provider: Jun 17, 2023 Time Seen by a Provider: 07:32 Progress/Assessment & Plan no complaints radiographs--HW well positioned without fracture RLE--2 plus DP pulse with brisk cap refill intact DF and PF of toes and ankle able to perform SLR s/p RTKA mobilize as able Final Diagnosis more pain today, but overall doing well Vital Signs Date Time Temp Pulse Resp B/P (MAP) Pulse Ox O2 Delivery O2 Flow Rate FiO2 06/17/23 03:09 36.5 71 16 160/77 (104) 93 Room Air 0.00 0.00 06/16/23 23:21 36.4 74 16 153/65 (94) 96 Room Air 0.00 0.00 06/16/23 21:57 95 Room Air 06/16/23 21:16 Room Air 06/16/23 19:33 36.7 82 16 177/75 (109) 95 Room Air 06/16/23 16:08 36.8 83 16 149/76 (100) 96 Room Air 06/16/23 11:38 36.4 78 16 161/74 (103) 94 Room Air 06/16/23 10:05 Room Air 06/16/23 10:00 36.4 16 170/77 (108) 97 Room Air 06/16/23 09:55 OxyMask 3.00 06/16/23 09:50 22 171/75 (107) 100 OxyMask 3.00 06/16/23 09:40 24 150/117 (128) 99 OxyMask 6 06/16/23 09:40 OxyMask 6 06/16/23 09:30 18 169/104 (125) 94 OxyMask 6 06/16/23 09:25 OxyMask 6 06/16/23 09:20 16 161/43 (82) 98 OxyMask 6 06/16/23 09:10 36.3 20 143/68 (93) 96 OxyMask 6 06/16/23 09:10 OxyMask 6 I & O 06/17/23 07:00 Intake Total 2330 ml Output Total 700 ml Balance 1630 ml Laboratory Tests Test 06/17/23 04:57 Range/Units Hemoglobin 10.6 L 11.5-16.0 g/dL Hematocrit 32 L 35-52 % RLE--dressing intact intact sensation distally no calf tenderness s/p RTKA PT/OT patient has no help at home so will plan for DC tomorrow if able LEIDA GOMEZ MD Jun 17, 2023 07:44
--- NOTE | 2023-06-17 08:35 | Physical Therapy Daily Note ---
PT Daily Note-Current Subjective Patient agrees to PT. Pain Numeric Pain Scale: 8 Location: Right Location Body Site: Knee Pain Description: Acute Section J - Health Conditions 1. Rarely or not at all 2. Occasionally 3. Frequently 4. Almost constantly 8. Unable to answer Pain Effect on Sleep: 1 Pain Interference with Therapy: 1 Pain Interference w/Day-to-Day: 1 Mental Status Patient Orientation: Normal For Age Attachments: IV Transfers SCALE: Activities may be completed with or without assistive devices. 2-Qsnyeihkqb-wrkdzyr completes the activity by him/herself with no assistance from a helper. 5-Set-up or Clean-up Assistance-helper sets up or cleans up; patient completes activity. [place] assists only prior to or following the activity. 4-Supervision or Touching Assistance-helper provides verbal cues and/or touching/steadying and/or contact guard assistance as patient completes activity. Assistance may be provided throughout the activity or intermittently. 3-Partial/Moderate Assistance-helper does LESS THAN HALF the effort. [place] lifts, holds or supports trunk or limbs, but provides less than half the effort. 2-Substantial/Maximal Assistance-helper does MORE THAN HALF the effort. [place] lifts or holds trunk or limbs and provides more than half the effort. 3-Byxsplait-phxtlq does ALL the effort. Patient does none of the effort to complete the activity. Or, the assistance of 2 or more helpers is required for the patient to complete the activity. If activity was not attempted, code reason: 7-Patient Refused. 9-Not Applicable-not attempted and the patient did not perform the activity before the current illness, exacerbation or injury. 10-Not Attempted due to Environmental Limitations-(lack of equipment, weather restraints, etc.). 88-Not Attempted due to Medical Conditions or Safety Concerns. Lying to Sitting/Side of Bed(Q: 6 Sit to Stand (QC): 4 Chair/Ulz-nf-Phoyj Xfer(QC): 4 Toilet Transfer (QC): 4 Weight Bearing Right Lower Extremity: Right Weight Bearing/Tolerated Left Lower Extremity: Left Full Weight Bearing Gait Training Distance: 250' Walk 10 feet (QC): 4 Walk 50 ft with 2 Turns(QC): 4 Walk 150 ft (QC): 4 Gait Assistive Device: FWW slow, reciprocal pattern Exercises Supine Ex: Ankle pumps, Quad Set, Heel Slides, Straight leg raise Supine Reps: 15 Seated Therapy Exercises: Long arc quads Seated Reps: 15 Assessment Patient requires time to complete all functional tasks and is progressing with treatment plan. Patient AROM right knee flexion is functional in seated position. Continue to increase activity as tolerated by patient. PT Plaster Molder Goals Detention Goals PT Plaster Molder Goals Time Frame: Jul 08, 2023 Roll Left & Right (QC): 6 Sit to Lying (QC): 6 Lying-Sitting on Side/Bed(QC): 6 Sit to Stand (QC): 6 Chair/Yps-uf-Cyifz Xfer(QC): 6 Toilet Transfer (QC): 6 Car Transfer (QC): 6 Does the Patient Walk: Yes Walk 10 feet (QC): 6 Walk 50ft with 2 Turns (QC): 6 Walk 150 ft (QC): 6 1 Step (curb) (QC): 4 4 Steps (QC): 4 12 Steps (QC): 4 PT Plan Treatment/Plan Treatment Plan: Continue Plan of Care Treatment Plan: Bed Mobility, Education, Functional Activity Tomasa, Functional Strength, Group Therapy, Gait, Safety, Therapeutic Exercise, Transfers Treatment Duration: Jul 08, 2023 Frequency: 11 times per week Estimated Hrs Per Day: .25 hour per day Patient and/or Family Agrees t: Yes Time Time In: 730 Time Out: 813 DATE: Jun 17, 2023 Total Billed Treatment Time: 43 Total Billed Treatment 1 visit GT 20 min EX x 2 23 min KATELYN SOLER PT Jun 17, 2023 08:35
[2023-06-17] MEDS ORDERED: amLODIPine 5 MG TABLET PO SCH (09:00)
[2023-06-17] MEDS: ENALAPRIL 10 MG TABLET PO SCH (09:01)
[2023-06-17] MEDS: ASPIRIN enteric coated 81MG TABLET PO SCH (09:01)
[2023-06-17] MEDS: SENNA W/DOCUSATE TABLET PO SCH ×2 (09:01→19:40)
[2023-06-17] MEDS: estradioL 1 MG TABLET PO SCH (09:04)
[2023-06-17] MEDS: CELECOXIB 400 MG CAPSULE PO SCH (09:05)
[2023-06-17] MEDS: ENOXAPARIN 30 MG/0.3 ML SYRINGE SC SCH ×2 (09:08→19:39)
[2023-06-17 12:20] VITALS: BP 183/77
--- NOTE | 2023-06-17 13:08 | Physical Therapy Daily Note ---
PT Daily Note-Current Subjective Patient agrees to PT. Pain Numeric Pain Scale: 8 Location: Right Location Body Site: Knee Pain Description: Acute Section J - Health Conditions 1. Rarely or not at all 2. Occasionally 3. Frequently 4. Almost constantly 8. Unable to answer Pain Effect on Sleep: 1 Pain Interference with Therapy: 1 Pain Interference w/Day-to-Day: 1 Transfers SCALE: Activities may be completed with or without assistive devices. 4-Ybncqkzgog-pmeload completes the activity by him/herself with no assistance from a helper. 5-Set-up or Clean-up Assistance-helper sets up or cleans up; patient completes activity. [place] assists only prior to or following the activity. 4-Supervision or Touching Assistance-helper provides verbal cues and/or touching /steadying and/or contact guard assistance as patient completes activity. Assistance may be provided throughout the activity or intermittently. 3-Partial/Moderate Assistance-helper does LESS THAN HALF the effort. [place] lifts, holds or supports trunk or limbs, but provides less than half the effort. 2-Substantial/Maximal Assistance-helper does MORE THAN HALF the effort. [place] lifts or holds trunk or limbs and provides more than half the effort. 2-Jhuapoads-eeablx does ALL the effort. Patient does none of the effort to complete the activity. Or, the assistance of 2 or more helpers is required for the patient to complete the activity. If activity was not attempted, code reason: 7-Patient Refused. 9-Not Applicable-not attempted and the patient did not perform the activity before the current illness, exacerbation or injury. 10-Not Attempted due to Environmental Limitations-(lack of equipment, weather restraints, etc.). 88-Not Attempted due to Medical Conditions or Safety Concerns. Lying to Sitting/Side of Bed(Q: 6 Sit to Stand (QC): 4 Chair/Idp-fb-Hjrjs Xfer(QC): 4 Weight Bearing Right Lower Extremity: Right Weight Bearing/Tolerated Left Lower Extremity: Left Full Weight Bearing Gait Training Distance: 200' Walk 10 feet (QC): 4 Walk 50 ft with 2 Turns(QC): 4 Walk 150 ft (QC): 4 Gait Assistive Device: FWW slow, antalgic, reciprocal pattern Stair Training Stair Training: Handrails/: 1 handrail (side step) #of Steps: 4 1 Step (curb) (QC): 4 4 Steps (QC): 4 Stairs: Pattern: Step to Exercises Seated Therapy Exercises: Long arc quads Seated Reps: 15 Assessment Patient progressing with treatment plan. Patient requires time to complete and remain on task. SBA to mod I with all mobility PT Group Home Goals Public Health Nutritionist Goals PT Public Health Nutritionist Goals Time Frame: Jul 08, 2023 Roll Left & Right (QC): 6 Sit to Lying (QC): 6 Lying-Sitting on Side/Bed(QC): 6 Sit to Stand (QC): 6 Chair/Vce-rb-Kkxan Xfer(QC): 6 Toilet Transfer (QC): 6 Car Transfer (QC): 6 Does the Patient Walk: Yes Walk 10 feet (QC): 6 Walk 50ft with 2 Turns (QC): 6 Walk 150 ft (QC): 6 1 Step (curb) (QC): 4 4 Steps (QC): 4 12 Steps (QC): 4 PT Plan Treatment/Plan Treatment Plan: Continue Plan of Care Treatment Plan: Bed Mobility, Education, Functional Activity Tomasa, Functional Strength, Group Therapy, Gait, Safety, Therapeutic Exercise, Transfers Treatment Duration: Jul 08, 2023 Frequency: 11 times per week Estimated Hrs Per Day: .25 hour per day Patient and/or Family Agrees t: Yes Time Time In: 1215 Time Out: 1240 DATE: Jun 17, 2023 Total Billed Treatment Time: 25 Total Billed Treatment 1 visit GT 10 min FA 15 min KATELYN SOLER PT Jun 17, 2023 13:08
--- NOTE | 2023-06-17 14:39 | Anesthesia-Regional Post-Op ---
Regional Patient Condition Mental Status: Alert, Oriented x3 Circulation: Same as Pre-Op Headache: Absent Sensation: Full Recovery Motor Block: Absent Post Op Complications Complications None Follow Up Care/Instructions Patient Instructions None needed. Anesthesia/Patient Condition Patient is doing well, no complaints, stable vital signs, no apparent adverse anesthesia problems. No complications reported per nursing. NIRAJ WYNN CRNA Jun 17, 2023 14:39
[2023-06-17] MEDS ORDERED: PANT40TA52 PO (15:01)
[2023-06-17] MEDS ORDERED: ACET-93 PO (15:01)
[2023-06-17] MEDS ORDERED: ACYC-108 PO (15:01)
[2023-06-17] MEDS ORDERED: CELE400C16 PO (15:01)
[2023-06-17] MEDS ORDERED: ESTR0.5T2 PO (15:01)
[2023-06-17] MEDS ORDERED: DOXY100C5 PO (15:01)
[2023-06-17] MEDS ORDERED: CYAN500T8 PO (15:01)
[2023-06-17] MEDS ORDERED: AMLO-250 PO (15:01)
[2023-06-17] MEDS ORDERED: OXYC1TAB11 PO (15:01)
[2023-06-17 15:43] VITALS: BP 168/69
[2023-06-17 19:28] VITALS: BP 159/67
[2023-06-17 23:30] VITALS: BP 162/67
[2023-06-18 03:53] VITALS: BP 145/73
--- NOTE | 2023-06-18 07:05 | Progress Note ---
Standard Progress Note Progress Notes/Assess & Plan Date Seen by a Provider: Jun 18, 2023 Time Seen by a Provider: 06:54 Progress/Assessment & Plan no complaints radiographs--HW well positioned without fracture RLE--2 plus DP pulse with brisk cap refill intact DF and PF of toes and ankle able to perform SLR s/p RTKA mobilize as able Final Diagnosis feeling better Vital Signs Date Time Temp Pulse Resp B/P (MAP) Pulse Ox O2 Delivery O2 Flow Rate FiO2 06/18/23 03:53 36.1 83 18 145/73 (97) 92 Room Air 0.00 0.00 06/17/23 23:30 36.2 88 18 162/67 (98) 94 Room Air 0.00 0.00 06/17/23 21:37 Room Air 06/17/23 19:28 36.8 95 18 159/67 (97) 94 Room Air 06/17/23 15:43 37.3 88 16 168/69 (102) 92 Room Air 06/17/23 12:20 36.4 82 18 183/77 (112) 94 Room Air 06/17/23 09:00 Room Air 06/17/23 07:24 36.4 76 18 179/77 (111) 94 Room Air I & O 06/18/23 07:00 Intake Total 2000 ml Output Total 1000 ml Balance 1000 ml R knee incision clean and dry fracture blisters medially no calf tenderness neg Brenda's s/p RTKA PT today DC tomorrow morning as patient has no help at home today LEIDA GOMEZ MD Jun 18, 2023 07:05
[2023-06-18 08:16] VITALS: BP 149/70
[2023-06-18] MEDS: amLODIPine 5 MG TABLET PO SCH (08:37)
[2023-06-18] MEDS: ENALAPRIL 10 MG TABLET PO SCH (08:37)
[2023-06-18] MEDS: ENOXAPARIN 30 MG/0.3 ML SYRINGE SC SCH ×2 (08:37→20:08)
[2023-06-18] MEDS: ASPIRIN enteric coated 81MG TABLET PO SCH (08:38)
[2023-06-18] MEDS: SENNA W/DOCUSATE TABLET PO SCH ×2 (08:38→20:07)
[2023-06-18] MEDS: estradioL 1 MG TABLET PO SCH (08:38)
[2023-06-18] MEDS: CELECOXIB 400 MG CAPSULE PO SCH (08:38)
--- NOTE | 2023-06-18 10:10 | Physical Therapy Daily Note ---
PT Daily Note-Current Subjective Patient reports she slept and feels better today. Pain Section J - Health Conditions 1. Rarely or not at all 2. Occasionally 3. Frequently 4. Almost constantly 8. Unable to answer Pain Effect on Sleep: 1 Pain Interference with Therapy: 1 Pain Interference w/Day-to-Day: 1 Transfers SCALE: Activities may be completed with or without assistive devices. 3-Xhduheslst-wxdtlsm completes the activity by him/herself with no assistance from a helper. 5-Set-up or Clean-up Assistance-helper sets up or cleans up; patient completes activity. [place] assists only prior to or following the activity. 4-Supervision or Touching Assistance-helper provides verbal cues and/or touching/steadying and/or contact guard assistance as patient completes activity. Assistance may be provided throughout the activity or intermittently. 3-Partial/Moderate Assistance-helper does LESS THAN HALF the effort. [place] lifts, holds or supports trunk or limbs, but provides less than half the effort. 2-Substantial/Maximal Assistance-helper does MORE THAN HALF the effort. [place] lifts or holds trunk or limbs and provides more than half the effort. 1-Xpqgnfvtq-nmqfve does ALL the effort. Patient does none of the effort to complete the activity. Or, the assistance of 2 or more helpers is required for the patient to complete the activity. If activity was not attempted, code reason: 7-Patient Refused. 9-Not Applicable-not attempted and the patient did not perform the activity before the current illness, exacerbation or injury. 10-Not Attempted due to Environmental Limitations-(lack of equipment, weather restraints, etc.). 88-Not Attempted due to Medical Conditions or Safety Concerns. Lying to Sitting/Side of Bed(Q: 6 Sit to Stand (QC): 6 Chair/Cnh-bu-Kxbqn Xfer(QC): 6 Toilet Transfer (QC): 6 Weight Bearing Right Lower Extremity: Right Weight Bearing/Tolerated Left Lower Extremity: Left Full Weight Bearing Gait Training Distance: 300' Walk 10 feet (QC): 6 Walk 50 ft with 2 Turns(QC): 6 Walk 150 ft (QC): 6 Gait Assistive Device: FWW steady, reciprocal pattern Exercises Supine Ex: Ankle pumps, Quad Set, Heel Slides, Straight leg raise Supine Reps: 15 Seated Therapy Exercises: Long arc quads Seated Reps: 15 Assessment Patient continues to require time to complete all functional tasks. Patient instructed to be up ad mariela in room to continue to address independent mobility and tasks. RN notified. Patient AROM right knee ~80 degrees. PT Shelter Goals Shelter Goals PT Set Making Machine Operator Goals Time Frame: Jul 08, 2023 Roll Left & Right (QC): 6 Sit to Lying (QC): 6 Lying-Sitting on Side/Bed(QC): 6 Sit to Stand (QC): 6 Chair/Ejf-so-Mpmwo Xfer(QC): 6 Toilet Transfer (QC): 6 Car Transfer (QC): 6 Does the Patient Walk: Yes Walk 10 feet (QC): 6 Walk 50ft with 2 Turns (QC): 6 Walk 150 ft (QC): 6 1 Step (curb) (QC): 4 4 Steps (QC): 4 12 Steps (QC): 4 PT Plan Treatment/Plan Treatment Plan: Continue Plan of Care Treatment Plan: Bed Mobility, Education, Functional Activity Tomasa, Functional Strength, Group Therapy, Gait, Safety, Therapeutic Exercise, Transfers Treatment Duration: Jul 08, 2023 Frequency: 11 times per week Estimated Hrs Per Day: .25 hour per day Patient and/or Family Agrees t: Yes Time Time In: 710 Time Out: 750 DATE: Jun 18, 2023 Total Billed Treatment Time: 40 Total Billed Treatment 1 visit EX x 2 24 min GT 16 min KATELYN SOLER PT Jun 18, 2023 10:10
[2023-06-18 11:05] VITALS: BP 147/63
[2023-06-18] MEDS: oxyCODONE/ACETAMINOPHEN 5/325MG TABLET PO PRN (13:08)
--- NOTE | 2023-06-18 13:08 | Physical Therapy Progress Note ---
Therapy Progress Note Patient observed up independently in room addressing packing and visiting with a friend. She reports compliance with HEP and ambulation in hallway. KATELYN SOLER PT Jun 18, 2023 13:08
[2023-06-18 15:33] VITALS: BP 144/67
[2023-06-18 19:20] VITALS: BP 135/66
[2023-06-18 23:58] VITALS: BP 160/63
[2023-06-19 03:39] VITALS: BP 148/71
[2023-06-19] MEDS: oxyCODONE/ACETAMINOPHEN 5/325MG TABLET PO PRN (03:55)
--- NOTE | 2023-06-19 06:10 | Progress Note ---
Standard Progress Note Progress Notes/Assess & Plan Date Seen by a Provider: Jun 19, 2023 Time Seen by a Provider: 05:46 Progress/Assessment & Plan no complaints radiographs--HW well positioned without fracture RLE--2 plus DP pulse with brisk cap refill intact DF and PF of toes and ankle able to perform SLR s/p RTKA mobilize as able Final Diagnosis no complaints Vital Signs Date Time Temp Pulse Resp B/P (MAP) Pulse Ox O2 Delivery O2 Flow Rate FiO2 06/19/23 03:39 37.0 79 20 148/71 (96) 94 Room Air 06/18/23 23:58 36.5 91 20 160/63 (95) Room Air 06/18/23 20:02 Room Air 06/18/23 19:20 36.8 84 16 135/66 (89) 94 Room Air 06/18/23 15:33 36.8 85 19 144/67 (92) 92 Room Air 06/18/23 11:05 36.0 77 18 147/63 (91) 94 Room Air 06/18/23 09:14 Room Air 06/18/23 08:16 36.5 80 18 149/70 (96) 95 Room Air I & O 06/19/23 07:00 Intake Total 1680 ml Output Total 1650 ml Balance 30 ml RLE--no calf tenderness neg Brenda's incsion clean and dry fracture blister without erythema or warmth s/p RTKA doing well instructed no would care DC home LEIDA GOMEZ MD Jun 19, 2023 06:10
[2023-06-19 07:58] VITALS: BP 170/71
[2023-06-19] MEDS: ENOXAPARIN 30 MG/0.3 ML SYRINGE SC SCH (08:10)
[2023-06-19] MEDS: amLODIPine 5 MG TABLET PO SCH (08:10)
[2023-06-19] MEDS: SENNA W/DOCUSATE TABLET PO SCH (08:10)
[2023-06-19] MEDS: ENALAPRIL 10 MG TABLET PO SCH (08:10)
[2023-06-19] MEDS: CELECOXIB 400 MG CAPSULE PO SCH (08:10)
[2023-06-19] MEDS: ASPIRIN enteric coated 81MG TABLET PO SCH (08:10)
[2023-06-19] MEDS: estradioL 1 MG TABLET PO SCH (08:11)
--- NOTE | 2023-06-19 09:47 | Physical Therapy Daily Note ---
PT Daily Note-Current Subjective Pt. in bed and agrees to PT. Pain rated 7/10 in the R knee. Pain Section J - Health Conditions 1. Rarely or not at all 2. Occasionally 3. Frequently 4. Almost constantly 8. Unable to answer Pain Effect on Sleep: 1 Pain Interference with Therapy: 1 Pain Interference w/Day-to-Day: 1 Mental Status Patient Orientation: Person, Place, Time, Situation Attachments: [facility] Transfers SCALE: Activities may be completed with or without assistive devices. 8-Lykezsbvqn-dsdydtx completes the activity by him/herself with no assistance from a helper. 5-Set-up or Clean-up Assistance-helper sets up or cleans up; patient completes activity. [place] assists only prior to or following the activity. 4-Supervision or Touching Assistance-helper provides verbal cues and/or touching/steadying and/or contact guard assistance as patient completes activity. Assistance may be provided throughout the activity or intermittently. 3-Partial/Moderate Assistance-helper does LESS THAN HALF the effort. [place] lifts, holds or supports trunk or limbs, but provides less than half the effort. 2-Substantial/Maximal Assistance-helper does MORE THAN HALF the effort. [place] lifts or holds trunk or limbs and provides more than half the effort. 9-Euitqobji-nzafgu does ALL the effort. Patient does none of the effort to complete the activity. Or, the assistance of 2 or more helpers is required for the patient to complete the activity. If activity was not attempted, code reason: 7-Patient Refused. 9-Not Applicable-not attempted and the patient did not perform the activity before the current illness, exacerbation or injury. 10-Not Attempted due to Environmental Limitations-(lack of equipment, weather restraints, etc.). 88-Not Attempted due to Medical Conditions or Safety Concerns. Lying to Sitting/Side of Bed(Q: 6 Sit to Stand (QC): 6 Weight Bearing Right Lower Extremity: Right Weight Bearing/Tolerated Left Lower Extremity: Left Full Weight Bearing Gait Training Does the Patient Walk?: Yes Distance: 200 ft Walk 150 ft (QC): 4 Gait Persons Needed: 1 Gait Assistive Device: FWW Exercises Supine Ex: Ankle pumps, Quad Set Supine Reps: 10 Seated Therapy Exercises: Long arc quads, Hamstring Curls Seated Reps: 10 Standing: Heel/toe raises, Marching Treatments TKA exercises, gait Assessment Current Status: Good Progress Pt. is steady throughout ambulation and did very well with knee exercises. Pt. up in chair post session with call light and all needs met. Planning D/C this AM. PT Enterer Goals Enterer Goals PT Mcc Goals Time Frame: Jul 08, 2023 Roll Left & Right (QC): 6 Sit to Lying (QC): 6 Lying-Sitting on Side/Bed(QC): 6 Sit to Stand (QC): 6 Chair/Lhw-tc-Ouybw Xfer(QC): 6 Toilet Transfer (QC): 6 Car Transfer (QC): 6 Does the Patient Walk: Yes Walk 10 feet (QC): 6 Walk 50ft with 2 Turns (QC): 6 Walk 150 ft (QC): 6 1 Step (curb) (QC): 4 4 Steps (QC): 4 12 Steps (QC): 4 PT Plan Treatment/Plan Treatment Plan: Continue Plan of Care Treatment Plan: Bed Mobility, Education, Functional Activity Tomasa, Functional Strength, Group Therapy, Gait, Safety, Therapeutic Exercise, Transfers Treatment Duration: Jul 08, 2023 Frequency: 11 times per week Estimated Hrs Per Day: .25 hour per day Patient and/or Family Agrees t: Yes Time Time In: 0800 Time Out: 08 DATE: Jun 19, 2023 Total Billed Treatment Time: 25 Total Billed Treatment 1, Ex 15', GT 10' ASHLEY SHIPLEY PT Jun 19, 2023 09:47
[2023-06-19 10:50] VITALS: BP 170/71
--- NOTE | 2023-06-19 17:36 | DISCHARGE SUMMARY ---
DATE OF SERVICE: 06/19/2023 DIAGNOSES: 1. Right knee primary osteoarthritis. 2. Hypertension. PROCEDURE: Right total knee arthroplasty. SUMMARY OF HOSPITAL COURSE: The patient is a 77-year-old female who underwent a right total knee arthroplasty the day of admission. Postoperatively, she progressed well. At the time of discharge, her wounds are clean and dry. She did have a fracture blister. There is no erythema or warmth. She had no calf tenderness. Negative Homans sign. She was tolerating her diet well and tolerating oral pain medication. CONDITION AT DISCHARGE: Good. DISCHARGE DIET: Regular. FOLLOWUP: Followup is in 3 weeks. Home physical therapy has been arranged. DISCHARGE MEDICATIONS: Home medications aspirin 1 per day, tramadol as needed for pain, Percocet as needed for pain. ACTIVITIES: Weightbearing as tolerated, right lower extremity. Job ID: [id number] DocumentID: [id number] Dictated Date: 06/19/2023 06:07:34 Gas Manager Date: 06/19/2023 17:34:00 Dictated By: LEIDA GOMEZ MD
== END 2023-06-19 11:00 | disposition home health service (06) | DRG 470 ==
LOC: 4TH 05:52 → SURG 05:53 → 4TH 10:10
PROVIDERS: ADMIT Orthopaedic Surgery; ATTEND Orthopaedic Surgery
PROC: 0SRC0J9 Replacement of Right Knee Joint with Synthetic Substitute, Cemented, Open Approach (ICD-10-PCS; principal; 2023-06-16 07:24)
DX: M17.11 Unilateral primary osteoarthritis, right knee (principal); I10 Essential (primary) hypertension; K21.9 Gastro-esophageal reflux disease without esophagitis; E78.5 Hyperlipidemia, unspecified; E66.9 Obesity, unspecified; Z68.32 Body mass index [BMI] 32.0-32.9, adult; Z87.891 Personal history of nicotine dependence
CPT/HCPCS: 36415; 73560; 85014; 85018; 86850; 86900; 86901; 94664